=== PATIENT | female | born 2000 | race Caucasian/White ===

== ENCOUNTER → 2021-10-14 16:43 | Outpatient (CLI) | payer OTHER, SELFPAY ==
[2021-10-14 17:58] LABS: HCG Quantitative /Beta subunit 212.5 mIU/mL
== END ==
PROVIDERS: Referring Provider Nurse Practitioner Obstetrics & Gynecology; Visit Provider Nurse Practitioner Obstetrics & Gynecology
DX: N91.2 Amenorrhea, unspecified (principal)
CPT/HCPCS: 36415; 84702

== ENCOUNTER 2022-02-15 13:15 | Emergency (ER) | payer OTHER, SELFPAY ==
[2022-02-15 13:33] VITALS: BP 130/66; PULSE 72; RESP 19; TEMP 37.4; O2SAT 100; BMI 30.8
[2022-02-15] MEDS: SODIUM CHLORIDE 0.9% 1,000 ML 1000 ML IV (14:18)
[2022-02-15 14:19] LABS: Add Manual Diff / Slide Review NO; Basophils Absolute Auto 0 /uL (0-100); Basophils Percent Auto 0.2 % (0-2); Eosinophils Absolute Auto 0 /uL (0-450); Eosinophils Percent Auto 0.2 % (2-4); Hematocrit 33.9 % (36-46); Hemoglobin 11.9 g/dL (12.0-16.0); Lymphocytes Absolute Auto 1400 /uL (1100-4500); Mean Corpuscular HGB Conc 35.2 % (30-36); Mean Corpuscular Hemoglobin 31.4 PG (26-34); Monocytes Absolute Auto 500 /uL (0-900); Monocytes Percent Auto 5.5 % (3-14); Neutrophils Absolute Auto 8000 /uL (1500-7000); Neutrophils Percent Auto 80.1 % (50-75); Platelet Count 223 X10^3/uL (150-400); Red Blood Cell Count 3.81 X10^6/uL (4.0-5.2); Red Cell Distribution Width 13.9 % (11.6-14.8)
[2022-02-15 14:32] LABS: Alanine Aminotransferase 16 IU/L (<35); Albumin 3.9 g/dL (3.5-5.0); Albumin Globulin Ratio 1.3 (1.0-2.8); Alkaline Phosphatase 62 U/L (38-126); Aspartate Aminotransferase 21 IU/L (14-36); BUN Creatinine Ratio 15.8 (6-22); Bilirubin Total 0.3 mg/dL (0.2-1.3); Blood Urea Nitrogen 9 mg/dL (7-17); Carbon Dioxide 23 mmol/L (22-32); Chloride 106 mmol/L (98-107); Estimated Glomerular Filt Rate > 60 mL/min (>60); Globulin 3.1 g/dL (1.7-4.1); Glucose 101 mg/dL (70-100); HEMOLYSIS < 15 (0-50); Potassium 3.6 mmol/L (3.4-5.1); Sodium 135 mmol/L (137-145)
[2022-02-15 15:08] LABS: COVID19 -Nasal RAPID Negative (Negative)
[2022-02-15 15:31] LABS: RBC Urine 0-1/HPF (0-5/HPF)
[2022-02-15 15:32] LABS: Bacteria Urine Many (>30); Culture Indicated Urine Specimen Cultured; Mucus Urine 1+ (Negative); Squamous Epithelial Cell Urine 0-1 /HPF (0-5/HPF); WBC Urine 1-5/HPF (0-5/HPF)
--- NOTE | 2022-02-15 15:38 | ED.SYNCOPE ---
HPI - Syncope General Chief Complaint: Syncope Stated Complaint: head injury/fall Time Seen by Provider: 02/15/22 15:37 Source: patient and family Mode of arrival: Family Vehicle Limitations: no limitations History of Present Illness HPI narrative: Patient is a 21-year-old female currently 22 weeks presenting with a syncopal episode. She says she was doing well yesterday and this morning. There up for breakfast she stepped go to the bathroom and the bathroom she passed out. She felt a little lightheaded woke up on the floor in vomit. She hit her head she thinks on a corner it knocked out her earrings. She was extremely weak had difficulty walking. While waiting in the emergency department she vomited 2 more times. She has since received fluid. She overall is feeling significantly better able to walk normal now. Denies numbness tingling or weakness. No visual changes. She has no neck pain. No abdominal pain no vaginal bleeding. She denies any pain. No laceration Related Data Previous Rx's Medication Instructions Recorded cephalexin 500 mg capsule 500 mg PO BID 5 days #10 caps 02/15/22 Allergies Allergy/AdvReac Type Severity Reaction Status Date / Time No Known Drug Allergies Allergy Verified 02/15/22 13:42 Review of Systems Review of Systems Narrative: GENERAL: Denies chills, fatigue, malaise, fever, sweats, travel HEENT: Denies sinus pain, ear pain, sore throat, difficulty swallowing, neck pain RESPIRATORY: Denies dyspnea, cough, wheezing, hemoptysis, sputum. CARDIOVASCULAR: Denies chest pain, palpitations, orthopnea, edema GASTROINTESTINAL: Denies nausea, vomiting, abdominal pain, diarrhea, constipation, melena. : Denies dysuria, frequency, incontinence, hematuria, urinary retention, flank pain. MUSCULOSKELETAL: Denies weakness, joint pain, or bony pain SKIN: No rash, no erythema, no pruritus NEUROLOGIC: See HPI PSYCHIATRIC: No concerning psychosocial issues. 12 point review of systems is negative except for those stated above and HPI Patient History Social History Smoking Status: Never smoker Smoking Status: Never smoker alcohol intake frequency: 0-2 drinks per day Substance Use Type: does not use Exam Initial Vital Signs Initial Vital Signs: Vital Signs Temperature 99.4 F 02/15/22 13:33 Pulse Rate 72 02/15/22 13:33 Respiratory Rate 19 02/15/22 13:33 Blood Pressure 130/66 02/15/22 13:33 Pulse Oximetry 100 02/15/22 13:33 Oxygen Delivery Method 02/15/22 13:33 GENERAL: Alert pleasant 21-year-old female no acute distress HEENT: Head atraumatic no abrasion contusion depression laceration or sign of trauma,EOMI, pupils reactive, face symmetric, moist mucous membranes NECK: Full flexion extension and rotation CARDIOVASCULAR: Regular rate and rhythm without murmurs, rubs or gallops. RESPIRATORY: Breath sounds equal bilaterally, no wheezes rales or rhonchi. ABDOMEN: Soft, nontender. Normoactive bowel sounds all 4 quadrants. No guarding or rebound. EXTREMITIES: Normal range of motion, no clubbing or edema. Neurovascularly intact NEUROLOGICAL: Alert and oriented x4.Normal gait and speech. Cranial nerves II through XII grossly intact. Good [id number]-[id number], good ddyw-yw-jess, strength equal bilaterally, no dysarthria or aphasia, sensation in tact to soft touch bilaterally, no visual changes, no facial droop SKIN: Warm, dry, no laceration, no petechiae, no rashes or lesions. Course Orders Ordered: ED Orders 02/15/22 13:44 EKG-12 Lead Stat 02/15/22 14:00 CBC Auto Diff [Complete Blood Count AUTO DIFF] Stat Comprehensive Metabolic Panel Stat 02/15/22 14:02 COVID19 -Nasal RAPID/Pre-Proc Stat Urine Culture Stat Urine Microscopic Stat Discontinued Medications Sodium Chloride (Normal Saline 0.9%) 1,000 mls @ 1,000 mls/hr IV BOLUS ONE Stop: 02/15/22 14:52 Last Infusion: 02/15/22 15:43 Dose: 1,000 mls/hr Documented By: Admin: 02/15/22 14:18 Dose: 1,000 mls/hr Documented By: POORNIMA Vital Signs Vital signs: Vital Signs - 8 hr 02/15/22 13:33 02/15/22 15:55 02/15/22 15:56 Temperature 99.4 F Pulse Rate 72 80 Respiratory Rate 19 25 H Blood Pressure 130/66 121/62 Pulse Oximetry 100 Oxygen Delivery Method Room Air 02/15/22 15:56 Temperature Pulse Rate 79 Respiratory Rate 14 Blood Pressure Pulse Oximetry 99 Oxygen Delivery Method MDM - Syncope Lab Data Result diagrams: 02/15/22 14:00 02/15/22 14:00 Labs: Lab Results 02/15/22 02/15/22 02/15/22 Range/Units 14:00 14:00 14:02 WBC 10.0 (4.5-11.0) X10^3/uL RBC 3.81 L (4.0-5.2) X10^6/uL Hgb 11.9 L (12.0-16.0) g/dL Hct 33.9 L (36-46) % MCV 89.0 (80-100) fL MCH 31.4 (26-34) PG MCHC 35.2 (30-36) % RDW 13.9 (11.6-14.8) % Plt Count 223 (150-400) X10^3/uL Neut % (Auto) 80.1 H (50-75) % Lymph % (Auto) 14.0 L (25-40) % [place] % (Auto) 5.5 (3-14) % Eos % (Auto) 0.2 L (2-4) % Baso % (Auto) 0.2 (0-2) % Neut # (Auto) 8000 H (5115-8734) /uL Lymph # (Auto) 1400 (7903-2300) /uL [place] # (Auto) 500 (0-900) /uL Eos # (Auto) 0 (0-450) /uL Baso # (Auto) 0 (0-100) /uL Sodium 135 L (137-145) mmol/L Potassium 3.6 (3.4-5.1) mmol/L Chloride 106 (98-107) mmol/L Carbon Dioxide 23 (22-32) mmol/L BUN 9 (7-17) mg/dL Creatinine 0.57 (0.52-1.04) mg/dL Estimated GFR > 60 (>60) mL/min BUN/Creatinine Ratio 15.8 (6-22) Glucose 101 H (70-100) mg/dL Calcium 9.0 (8.4-10.2) mg/dL Total Bilirubin 0.3 (0.2-1.3) mg/dL AST 21 (14-36) IU/L ALT 16 (<35) IU/L Alkaline Phosphatase 62 (38-126) U/L Total Protein 7.0 (6.3-8.2) g/dL Albumin 3.9 (3.5-5.0) g/dL Globulin 3.1 (1.7-4.1) g/dL Albumin/Globulin Ratio 1.3 (1.0-2.8) Urine RBC (0-5/HPF) Urine WBC (0-5/HPF) Ur Squamous Epith Cells (0-5/HPF) Urine Bacteria (None) Urine Mucus (Negative) Ur Culture Indicated? SARS-CoV-2 (PCR) Negative (Negative) 02/15/22 Range/Units 14:02 WBC (4.5-11.0) X10^3/uL RBC (4.0-5.2) X10^6/uL Hgb (12.0-16.0) g/dL Hct (36-46) % MCV (80-100) fL MCH (26-34) PG MCHC (30-36) % RDW (11.6-14.8) % Plt Count (150-400) X10^3/uL Neut % (Auto) (50-75) % Lymph % (Auto) (25-40) % [place] % (Auto) (3-14) % Eos % (Auto) (2-4) % Baso % (Auto) (0-2) % Neut # (Auto) (2563-0372) /uL Lymph # (Auto) (7500-7986) /uL [place] # (Auto) (0-900) /uL Eos # (Auto) (0-450) /uL Baso # (Auto) (0-100) /uL Sodium (137-145) mmol/L Potassium (3.4-5.1) mmol/L Chloride (98-107) mmol/L Carbon Dioxide (22-32) mmol/L BUN (7-17) mg/dL Creatinine (0.52-1.04) mg/dL Estimated GFR (>60) mL/min BUN/Creatinine Ratio (6-22) Glucose (70-100) mg/dL Calcium (8.4-10.2) mg/dL Total Bilirubin (0.2-1.3) mg/dL AST (14-36) IU/L ALT (<35) IU/L Alkaline Phosphatase (38-126) U/L Total Protein (6.3-8.2) g/dL Albumin (3.5-5.0) g/dL Globulin (1.7-4.1) g/dL Albumin/Globulin Ratio (1.0-2.8) Urine RBC 0-1/hpf (0-5/HPF) Urine WBC 1-5/hpf (0-5/HPF) Ur Squamous Epith Cells 0-1 /hpf (0-5/HPF) Urine Bacteria Many (>30) H (None) Urine Mucus 1+ H (Negative) Ur Culture Indicated? Specimen cultured SARS-CoV-2 (PCR) (Negative) Urine Dip Bedside Urine Glucose Negative Bedside Urine Bilirubin - Negative Bedside Urine Ketone +/- 5 Urine Specific [place] 1.025 Bedside Urine Occult Blood - Negative Bedside Urine pH 6 Bedside Urine Protein +/- 15 Bedside Urine Urobilinogen +/- 1mg Bedside Urine Nitrite - Negative Bedside Urine Leukocytes - Negative Esterase ECG Data Interpretation: Normal sinus rhythm rate 73 OH interval 144 QRS [address] changes MDM Narrative Medical decision making narrative: The patient had a syncopal episode with vomiting. She is overall feeling significantly better with IV fluids. Urine does show some bacteria in her urine and is cultured however she does not have nitrates or leukocytes. Early UTI does not appear septic. There is absolutely no sign of trauma to her head. However she has had some vomiting. We discussed possible CT however symptoms have improved at this time I think it is okay to hold on a CT. Will start her on antibiotics for UTI I discussed all findings with the patient and spouse, Education has been performed regarding treatment plan, diagnosis, warning signs and symptoms and all concerns have been addressed. Verbally agree with and understood all of the above. Discharge Plan Departure Patient Disposition: Home Clinical Impression: UTI (urinary tract infection), Vasovagal syncope Instructions: DI for Urinary Tract Infection (UTI) Activity Restrictions/Additional Instructions: *You have been diagnosed with syncope and UTI *What to do: At this time he likely passed out because you have a bladder infection. Will start on some antibiotics. Increase fluids. Put your feet up on the wall *Continue to take medications as directed Keflex 500 mg twice a day for 5 days --> [facility] *Follow up with your primary care provider in 2-3 days or call [phone] *Return to ER if you should have refer abdomen found of vomiting out, worsening headache weakness confusion abdominal pain vaginal bleeding, or any new, worsening or concerning symptoms Prescriptions: New cephalexin 500 mg capsule 500 mg PO BID 5 Days Qty: 10 0RF Referrals: Miscellaneous,Doctor, MD [Primary Care Provider] - Visit Report Forms: Patient Portal/API
[2022-02-15 15:55] VITALS: PULSE 80; RESP 25
[2022-02-15 15:56] VITALS: BP 121/62; PULSE 79; RESP 14; O2SAT 99
--- NOTE | 2022-02-15 15:58 | PC.NURSE ---
heart tones: 134
== END 2022-02-15 16:09 | disposition home or self-care (01) ==
PROVIDERS: Emergency Provider Emergency Medicine
DX: N39.0 Urinary tract infection, site not specified (principal); R55 Syncope and collapse; Z3A.22 22 weeks gestation of pregnancy; Z20.822 Contact with and (suspected) exposure to COVID-19
CPT/HCPCS: 36415; 80053; 81003; 81015; 85025; 87086; 87635; 93005; 93010; 96360; 99284; C9803